=== PATIENT | female | born 1980 | race Caucasian/White ===

== ENCOUNTER → 2019-12-30 14:55 | Outpatient (CLI) | payer OTHER, SELFPAY ==
--- NOTE | ~2019-12-30 | XR_ITS ---
XR wrist LT w scaphoid 12/30/2019 15:37 INDICATION: Contusion left wrist. PROCEDURE: 5 views left wrist COMPARISON: No prior studies for comparison. FINDINGS: Fracture, dislocation or subluxation is not identified. The soft tissues appear within norm al limits. No foreign bodies are identified. IMPRESSION: 1: NO ACUTE BONE OR JOINT ABNORMALITY IDENTIFIED. Reviewed, dictated and finalized at location A.
== END ==
PROVIDERS: PCP Family Medicine; Visit Provider Family Medicine
DX: S60.212D Contusion of left wrist, subsequent encounter (principal); X58.XXXD Exposure to other specified factors, subsequent encounter
CPT/HCPCS: 73110

== ENCOUNTER 2020-03-12 14:54 | Emergency (ER) | payer OTHER, SELFPAY ==
--- NOTE | ~2020-03-12 | CT_ITS ---
EXAMINATION: CT facial bones w con DATE: 03/12/2020 16:50 INDICATION: Left-sided facial pain and swelling TECHNIQUE: Computed tomography (CT) of the facial bones and maxillofacial region was performed with 7 5 cc of Omnipaque 350 intravenous contrast. The dose-length product (DLP) was 514.92 mGy-cm. Automate d exposure control and iterative reconstruction technique were employed. COMPARISON: None. FINDINGS: There is enlargement of the left submandibular gland when compared to the right. There is f at stranding surrounding the left submandibular gland. There is an increase in size of left submandib ular lymph nodes and an enlarged left internal jugular lymph node, likely reactive. No abscess is karuna ntified. The facial bones are unremarkable. Caries are noted in the second and third molars of the le ft mandible and the second molar of the maxilla on the left. A periapical abscess is seen at the left second mandibular molar. IMPRESSION: 1. Sialadenitis of the left submandibular gland. 2. Dental caries. 3. Reactive lymphadenopathy of the left face and neck. Reviewed, dictated and finalized at location A.
[2020-03-12 14:57] VITALS: BP 134/87; PULSE 74; RESP 18; TEMP 37; O2SAT 98
[2020-03-12 16:00] LABS: Basophils Absolute Auto 0.1 K/mm3 (0.0-0.1); Basophils Percent Auto 0.7 % (0.2-1.2); Eosinophils Percent Auto 0.1 % (0-4.4); Hematocrit 44.4 % (37.0-47.0); Immature Granulocyte Absolute 0.02 K/mm3 (0.00-0.031); Immature Granulocyte Percent A 0.2 % (0-0.5); Lymphocytes Absolute Auto 1.18 K/mm3 (0.9-3.2); Lymphocytes Percent Auto 13.1 % (18.3-44.2); Mean Corpuscular HGB Conc 33.8 g/dl (32-36); Mean Corpuscular Hemoglobin 30.5 pg (26-34); Mean Corpuscular Volume 90.2 fl (80-100); Mean Platelet Volume 11.5 fl (7.4-10.4); Monocytes Absolute Auto 0.4 K/mm3 (0.1-0.6); Monocytes Percent Auto 4.8 % (2.6-8.5); Neutrophils Absolute Auto 7.3 K/mm3 (1.3-6.7); Neutrophils Percent Auto 81.1 % (45.5-73.1); Platelet Count Result 203 k/mm3 (150-375); Red Blood Count 4.92 M/mm3 (4.2-5.4); Red Cell Distribution Width 12.7 % (11.5-14.5)
[2020-03-12 16:08] LABS: Blood Urea Nitrogen 6 mg/dL (7-17); Carbon Dioxide 18 mmol/L (22-30); Chloride 106 mmol/L (98-107); Estimated CRCL calculation 118 ml/min; Estimated Glomerular Filt Rate > 60; Glucose 91 mg/dL (65-105); Potassium 3.9 mmol/L (3.4-5.0); Sodium 134 mmol/L (137-145)
--- NOTE | 2020-03-12 16:12 | ED.DENTAL ---
HPI - Dental/Oral General Chief complaint: Dental/Oral <HAKEEM Edwards Last Filed: 03/12/20 18:57> Stated complaint: jaw pain <HAKEEM Edwards Last Filed: 03/12/20 18:57> Time Seen by Provider: 03/12/20 15:48 <HAKEEM Edwards Last Filed: 03/12/20 18:57> Source: patient <HAKEEM Edwards Last Filed: 03/12/20 18:57> Mode of arrival: ambulatory <HAKEEM Edwards Last Filed: 03/12/20 18:57> Limitations: no limitations <HAKEEM Edwards Last Filed: 03/12/20 18:57> History of Present Illness HPI Narrative: This is a 39-year-old female who presents the emergency department for toothache x2 days. Reports she had a telehealth visit for this and was started on amoxicillin. Reports she has had increasing pain and swelling since. Also reports sore throat and trouble swallowing. Denies fever or shortness of breath. <HAKEEM Edwards Last Filed: 03/12/20 18:57> MD Complaint: tooth pain <HAKEEM Edwards Last Filed: 03/12/20 18:57> Location: Tooth # (18) <HAKEEM Edwards Last Filed: 03/12/20 18:57> Related Data Home medications: Home Medications Medication Instructions Recorded Confirmed medroxyprogesterone 150 mg/mL 150 mg IM [id number] 09/08/19 intramuscular suspension <HAKEEM Edwards Last Filed: 03/12/20 18:57> Allergies/adverse reactions: Allergies Allergy/AdvReac Type Severity Reaction Status Date / Time No Known Allergies Allergy Verified 03/01/20 14:23 <HAKEEM Edwards Last Filed: 03/12/20 18:57> Review of Systems Review of Systems: Narrative: CONSTITUTIONAL: Denies fever ENT: Reports sore throat, and dentalgia RESPIRATORY: Denies dyspnea. 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 IBS (irritable bowel syndrome) <Dulce Abarca PA-C - Last Filed: 03/12/20 18:57> Social History Social History: Social History (Updated 12/30/19 @ 13:48 by Savita Gonzalez) Social History: Single Smoking status: Former smoker Tobacco type: e-cigarettes/vaping Second hand tobacco smoke exposure: Yes Smoking end date: 10/19/10 Alcohol intake: never Substance use: current Substance use type: marijuana Gender identity (if verbalized by the patient): Female <Dulce Abarca PA-C - Last Filed: 03/12/20 18:57> Exam Narrative: Exam Narrative: GENERAL: Well-appearing, well-nourished, and in no acute distress. HEAD: Normocephalic, atraumatic. EYES: EOMI. ENT: Nares clear, no rhinorrhea or epistaxis. Mucous membranes moist. Oropharynx without tonsillar hypertrophy exudate or other lesions. Bilateral TMs pearly owens non-bulging. Poor dentition. Tooth #18 tender to palpation without obvious erythema or edema to suggest abscess. No trismus NECK: Supple. No adenopathy or masses. CHEST: Clear to auscultation. No respiratory distress. No wheezes rales or rhonchi HEART: Regular rate and rhythm. No murmur heard. Normal peripheral pulses. EXTREMITIES: Normal range of motion. No edema. SKIN: Warm, dry, no rash. NEURO: No focal deficits. Alert and oriented x3. PSYCH: Normal mood and affect <Dulce Abarca PA-C - Last Filed: 03/12/20 18:57> Course Vital Signs Vital signs: Vital Signs Temperature 98.6 F 03/12/20 14:57 Pulse Rate 74 03/12/20 14:57 Respiratory Rate 18 05/25/20 14:57 Blood Pressure 134/87 05/25/20 14:57 Pulse Oximetry 98 03/12/20 14:57 Temperature 98.6 F 03/12/20 14:57 Pulse Rate 74 03/12/20 14:57 Respiratory Rate 18 03/12/20 14:57 Blood Pressure 134/87 03/12/20 14:57 Puls
[2020-03-12] MEDS: KETOROLAC 30 MG/ML VIAL (*BKC) IV PUSH (16:20)
[2020-03-12 16:24] LABS: CRP 19.5 mg/dL (<1.0); Erythrocyte Sedimentation Rate 22 mm/hr (0-20)
[2020-03-12] MEDS: AMPICILLIN SULB 3 GM/NS 100 ML 3 GM/100 ML VIAL IVPB (17:30)
[2020-03-12] MEDS: SODIUM CHLORIDE 0.9% IV 500 ML 999 ML IV CONT (17:37)
[2020-03-12 19:10] VITALS: BP 126/78; PULSE 80; RESP 20; O2SAT 99
== END 2020-03-12 19:12 | disposition home or self-care (01) ==
PROVIDERS: Physician Assistant; Emergency Provider General Practice; PCP Family Medicine
DX: K11.20 Sialoadenitis, unspecified (principal); K58.9 Irritable bowel syndrome, unspecified; Z87.891 Personal history of nicotine dependence
CPT/HCPCS: 36415; 70487; 80048; 85025; 85652; 86140; 87081; 87880; 96365; 96375; 99284; J0295; J1885; J7040; Q9967

== ENCOUNTER 2023-05-18 07:48 | Outpatient (CLI) | payer BC, SELFPAY ==
--- NOTE | ~2023-05-18 | MMUS_ITS ---
EXAMINATION: MM diagnostic sosa BI w burak, US breast RT limited HISTORY: Focal right breast pain and lumpiness TECHNIQUE: ML, MLO and CC 3-D tomosynthesis images of both breasts were performed and synthetic 2-D i mages were generated. CAD analysis was submitted and interpreted. High resolution targeted right danika st ultrasound examination at the area of clinical complaint was performed. COMPARISON: None BREAST PARENCHYMAL COMPOSITION: There are scattered areas of fibroglandular density. FINDINGS: MAMMOGRAPHIC FINDINGS: No suspicious mass or architectural distortion, malignant calcification, skin thickening or retractio n is detected. ULTRASOUND: At 9:00 13 cm from the nipple at the area of complaint of pain and lumpiness there is no suspicious m ass, shadowing, cyst or other significant sonographic finding. IMPRESSION: 1. Negative examinations; no evidence of malignancy 2. Routine annual mammographic screening is recommended BI-RADS Category 1: Negative Reviewed, dictated and finalized at location A. IMPRESSION: 1. Negative examinations; no evidence of malignancy 2. Routine annual mammographic screening is recommended BI-RADS Category 1: Negative
== END 2023-05-18 07:49 ==
PROVIDERS: PCP Family Medicine; Visit Provider Family Medicine
DX: N64.4 Mastodynia (principal)
CPT/HCPCS: 76642; 77062; 77066; G0279

== ENCOUNTER 2024-05-24 07:13 | Outpatient (CLI) | payer OTHER, SELFPAY ==
--- NOTE | ~2024-05-24 | DEXA_ITS ---
Bone Density Report Name: ERIKA SANDS Age: 43 Sex: Female Ethnicity: White Date of : 1980 Indication: height loss; inflammatory bowel disease; prior fracture; Referring Provider: FLORENCE WILCOX Study: Bone densitometry was performed. Exam Date: May 24, 2024 Accession number: [id number] Bone Density: Region BMD T-score Z-score Classification AP Spine(L1-L4) 1.113 0.6 1.0 Normal Femoral Neck (Left) 0.747 -0.9 -0.5 Normal Total Hip (Left) 0.843 -0.8 -0.5 Normal Femoral Neck (Right) 0.769 -0.7 -0.3 Normal Total Hip (Right) 0.866 -0.6 -0.4 Normal Femoral Neck Mean 0.758 -0.8 -0.4 Normal Total Hip Mean 0.855 -0.7 -0.5 Normal World Health Organization criteria for BMD impression classify patients as: Normal (T-score at or above -1.0), Osteopenia (T-score between -1.0 and -2.5), or Osteoporosis (T-score at or below -2.5). 10-year Fracture Risk: FRAX not reported because: Premenopausal woman All T-scores for Spine Total, Hip Total, Femoral Neck at or above -1.0 Clinical Information Provided by Patient: Has had a low trauma fracture Has the following medical conditions: Inflammatory bowel diseases Patient maximum height was 74 No regular weight bearing exercise Does not regularly consume dairy products Drinks caffeinated beverages Onset of menses at age 13 Premenopausal Number of children 0 Impression: The patient's bone mass is within expected range for age, gender and ethnicity. The patient has risk factors, including: previous fracture. Discussion: BONE DENSITY IS WITHIN EXPECTED LIMITS FOR AGE, SEX AND RACE. Bone density is within expected limits for age, sex and race at all sites measured. The patient should follow a healthful lifestyle (good nutrition with adequate calcium and vitamin D, and appropriate weight-bearing exercise). Follow-Up: Consider repeating this study in 5 years or sooner if there is some new clinical indication. Reported by: Dr. Abdon Garcia on 05/24/2024 7:38:00 AM. Reviewed, dictated and finalized at location A. [facility]
--- NOTE | ~2024-05-24 | XR_ITS ---
Clinical Indication: Asbestos exposure PA and lateral views of the chest: Comparison: None Findings: The lungs are clear, without evidence of focal consolidation or pleural effusion. Cardiome diastinal silhouette is within normal limits. Bones and soft tissues are unremarkable. Impression: Normal chest. Reviewed, dictated and finalized at [facility]. Impression: Normal chest.
== END 2024-05-24 07:14 | disposition home or self-care (01) ==
LOC: CHSIMG 07:16
PROVIDERS: PCP Nurse Practitioner Family; Visit Provider Nurse Practitioner Family
DX: Z78.9 Other specified health status (principal); Z79.899 Other long term (current) drug therapy; Z91.89 Other specified personal risk factors, not elsewhere classified; Z77.090 Contact with and (suspected) exposure to asbestos; M85.88 Other specified disorders of bone density and structure, other site
CPT/HCPCS: 71046; 77080

== ENCOUNTER 2024-11-10 09:03 | Outpatient (CLI) | payer OTHER, SELFPAY ==
--- NOTE | ~2024-11-10 | MM_ITS ---
EXAMINATION: MM screening sosa BI w burak HISTORY: Screening TECHNIQUE: Craniocaudal and mediolateral oblique 3-D tomosynthesis images were obtained and synthetic 2-D images were generated. CAD analysis was submitted and interpreted. COMPARISON: 05/18/2023 BREAST PARENCHYMAL COMPOSITION: Not dense: There are scattered areas of fibroglandular density. FINDINGS: There is no evidence of suspicious mass, calcification, or architectural distortion to sugg est malignancy in either breast. There has been no suspicious interval change. IMPRESSION: 1. No mammographic evidence of malignancy. 2. Recommend routine screening mammography in one year. BI-RADS Category 1: Negative Reviewed, dictated and finalized at location A. [employer]
--- OUTSIDE RECORDS SUMMARY | 2024-11-11 04:01 | XMS_ITS | Clinical Summary ---
Author Organization [facility] Address [facility] [place] [address] [place] [address] Care Team Providers Care Mat Machine Tender Name Role Phone Thao Mora MD Primary Care Provider [phone] Allergies No known active allergies Medications Nabumetone (RELAFEN DS) 1000 MG Tab Take 1 tablet by mouth 2 (two) times daily as needed. 30 tablet 12/18/2019 Active hydrocodone-acet aminophen (NORCO) 5-325 MG tabletIndication s:Acute Pain < 3 Day Supply Take 1 tablet by mouth every 6 (six) hours as needed. Indications : Acute Pain < 3 Day Supply 6 tablet 12/18/2019 Active Active Problems No known active problems Family History Medical History Relation Comments No Known Problems Father No Known Problems Mother Relation Status Comments Father Mother Social History Tobacco Use Types Packs/Day Years Used Date Smoking Tobacco: Every Day Electronic Cigarettes Alcohol Use Standard Drinks/Week Comments Yes 0 (1 standard drink = 0.6 oz pur e alcohol) rarely Comments No Sex and Gender Information Value Date Recorded Sex Assigned at Not on file Legal Sex Female 8:18 AM [employer] MECH[employer]IC HEL[employer] Gender Identity Not on file Sexual Orientation Not on file Last Filed Vital Signs Vital Sign Reading Time Taken Comments Blood Pressure 143/87 12/18/2019 8:27 AM [employer] MECH[employer]IC HELPER Pulse 87 12/18/2019 8:27 AM [employer]BLE MECH[employer]IC HELPER Temperature 36.6 ??C (97.9 ??F) 12/18/2019 8:27 AM CS T Respiratory Rate 16 12/18/2019 8:27 AM [employer] MECH[employer]IC HELPER Oxygen Saturation 96% 12/18/2019 8:27 AM [employer]BLE MECH[employer]IC HELPER Inhaled Oxygen Concentration - - Weight 122.5 kg (270 lb) 12/18/2019 8:27 AM [employer]BLE MECH[employer]IC HELPER Height 182.9 cm (6') 12/18/2019 8:27 AM [employer]BLE MECH[employer]IC HELPER Body Mass Index 36.62 12/18/2019 8:27 AM [employer]BLE MECH[employer]IC HELPER Plan of Treatment Health Maintenance Due Date Last Done Comments Cervical Cancer Screening Pa p Smear (Age 30 to 64) Every 3 Years 1980 Annual Physical 1983 Pneumococcal Vaccine: Pediat rics (0 to 5 Years) and At-Risk Patients (6 to 64 Years) (1 of 2 - PCV) 1986 Hepatitis C 1998 DTaP, Tdap and Td Vaccines ( 1 - Tdap) 1999 Hepatitis B Vaccines (1 of 3 - 19+ 3-dose series) 1999 Cervical Cancer Screening Pa p with HPV Testing (Age 30 to 64) Every 5 Years 2010 Cervical Cancer Screening with HPV 2010 Mammogram Screening 2020 COVID-19 Vaccine (2023-2 5 season) 2024 Influenza Adult (#1) 2024 HPV Vaccines Aged Out No longer eligi ble based on patient's age to complete this topic Meningococcal Vaccine Aged Out No wu katarzyna eligible based on patient's age to complete this topic RSV Immunizations Under 20 Months Aged Out No longer eligible based on patient's age to complete this topic Insurance [employer] Care Teams Mat Machine Tender Relationship Specialty Start Date End Date Thao Mora MD [address] [place] [address] [address] [place] [address] PCP - General FAMILY PRACTICE 12/18/19
== END 2024-11-10 09:04 | disposition home or self-care (01) ==
PROVIDERS: PCP Nurse Practitioner Family; Visit Provider Nurse Practitioner Family
DX: Z12.31 Encounter for screening mammogram for malignant neoplasm of breast (principal)
CPT/HCPCS: 77063; 77067